=== PATIENT | male | born 1980 | race Caucasian/White ===

== ENCOUNTER 2017-07-05 11:34 | Emergency (ER) | payer MEDICAID ==
[~2017-07-05] VITALS: Ht 180.3 cm; Wt 72.0 kg
[~2017-07-05 11:34] MED LIST: QUET25TA PO
[2017-07-05 11:50] VITALS: BP 134/81
[2017-07-05] MEDS ORDERED: HYDR-565 PO (12:22)
[2017-07-05] MEDS ORDERED: AMOX-422 PO (12:22)
== END 2017-07-05 12:29 | disposition home or self-care (01) ==
LOC: ER 11:34
DX: K04.7 Periapical abscess without sinus (principal); F17.200 Nicotine dependence, unspecified, uncomplicated; F15.10 Other stimulant abuse, uncomplicated; Z59.0 Homelessness
CPT/HCPCS: 99283

== ENCOUNTER 2020-06-13 15:26 | Emergency (ER) | payer MEDICAID ==
[~2020-06-13] VITALS: Ht 180.3 cm; Wt 81.0 kg
[~2020-06-13 15:26] MED LIST changes: +HALO5TAB PO; +NO HOME MEDS; -QUET25TA PO
[2020-06-13 15:40] VITALS: BP 127/79
[2020-06-13] MEDS ORDERED: acetaminophen 325mg tablet PO ONE (16:45)
[2020-06-13] MEDS ORDERED: SULF1TAB45 PO (17:23)
[2020-06-13] MEDS ORDERED: sulfamethoxazole/trimethoprim DS (800/160mg) tablet PO ONE (17:25)
== END 2020-06-13 18:19 | disposition home or self-care (01) ==
LOC: ER 15:26
DX: L03.116 Cellulitis of left lower limb (principal); M79.662 Pain in left lower leg; Z72.89 Other problems related to lifestyle; Z60.2 Problems related to living alone; Z59.0 Homelessness; Z79.2 Long term (current) use of antibiotics; Z79.899 Other long term (current) drug therapy
CPT/HCPCS: 73590; 99283